=== PATIENT | male | born 1985 | race Caucasian/White ===

== ENCOUNTER 2019-07-09 16:10 | Emergency (ER) | payer OTHER ==
[~2019-07-09] VITALS: Ht 185.4 cm; Wt 90.7 kg
[2019-07-09 16:26] VITALS: BP 118/70
[2019-07-09] MEDS ORDERED: Methocarbamol 750mg tab ORAL ONE (17:15)
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
--- NOTE | 2019-07-09 18:12 | Diagnostic Imaging Report ---
Indication: Back pain Comparison: None Findings: 3 views of the sacrum and coccyx were obtained. Findings: No acute fracture is identified. The sacroiliac joints are unremarkable. Sacral ala appear symmetric. There is some obscuring due to overlying bowel gas and stool. Impression: No acute injury identified.
[2019-07-09] MEDS ORDERED: Morphine Sulfate 2mg/ml Inj(IV/IM USE ONLY) IVP ONE (18:15)
[2019-07-09] MEDS ORDERED: CEPHALEXIN500 MG ORAL (18:30)
[2019-07-09] MEDS ORDERED: ROBAXIN-750750 MG PO (18:30)
[2019-07-09] MEDS ORDERED: SILVADENE20 GM TP (18:30)
[2019-07-09] MEDS ORDERED: IBUPROFEN600 MG ORAL (18:30)
[2019-07-09] MEDS ORDERED: Tetanus/Diptheria/Pertussis IM ONE (18:30)
[2019-07-09] MEDS ORDERED: Hydrogen Peroxide 473ml Bottle TOPIC ONE ×2 (18:40→18:45)
[2019-07-09] MEDS ORDERED: Ketorolac 30mg Inj IM ONE (19:45)
[2019-07-09] MEDS ORDERED: HYDROcodone/Acetamin 5/325 tab ORAL ONE (19:45)
[2019-07-09 20:39] VITALS: BP 120/65
== END 2019-07-09 20:39 | disposition home or self-care (01) ==
LOC: EMR 20:14
DX: S20.419A Abrasion of unspecified back wall of thorax, initial encounter (principal); S80.811A Abrasion, right lower leg, initial encounter; S40.811A Abrasion of right upper arm, initial encounter; S70.12XA Contusion of left thigh, initial encounter; V13.4XXA Pedal cycle driver injured in collision with car, pick-up truck or van in traffic accident, initial encounter; Y93.55 Activity, bike riding; Y92.410 Unspecified street and highway as the place of occurrence of the external cause; M54.5 Low back pain; Z23 Encounter for immunization
CPT/HCPCS: 72220; 90471; 90715; 96372; 96374; 99284; J1885; J2270